=== PATIENT | female | born 1965 | race Caucasian/White ===

== ENCOUNTER → 2016-10-01 | Day surgery (SDC) | payer BC, OTHER ==
--- NOTE | 2016-10-03 10:36 | PATH ---
Cytology Non-Gynecological Report Patient Name: EVITA VASQUEZ [facility]. Rec. #: [id number] /Age/Gender: 1965 (Age: 51) / F Account: [id number] Location: RADIOLOGY Taken: 10/01/2016 Received: 10/01/2016 Reported: 10/03/2016 Physicians: Yuly Mendoza M.D. Specimen(s) Received RIGHT THYROID FNA Clinical History Right thyroid nodule 2.4 x 2.4 x 0.7 cm; r/o thyroiditis Final Diagnosis THYROID GLAND, RIGHT LOBE, US GUIDED FINE NEEDLE ASPIRATION BIOPSY: SATISFACTORY FOR EVALUATION. NO MALIGNANT CELLS IDENTIFIED. SCATTERED BLAND APPEARING FOLICULAR EPITHELIAL CELLS WITH VACUOLATED CYTOPLASM AND COLLOID ([place] CATEGORY II, BENIGN), SEE COMMENT. Comment: The biopsy shows scattered bland appearing follicular epithelial cells with foamy (vacuolated) cytoplasm and colloid. These findings are most suggestive of nodular hyperplasia, likely with a background inflammatory condition such as Grave's disease ([place] Category II, benign). Serological and clinical correlations are suggested. Electronically Signed Nick Coburn M.D. Gross Description Received are four air dried smears, four smears in 95% alcohol, and 20 cc of bloody fluid in formalin. Four diff-quik stained slides, four Pap stained slides and one cell block are made.
== END | disposition home or self-care (01) ==
LOC: JRADIR 08:49
PROVIDERS: ATTEND Otolaryngology Facial Plastic Surgery
PROC: 0G9H3ZX Drainage of Right Thyroid Gland Lobe, Percutaneous Approach, Diagnostic (ICD-10-PCS; principal; 2016-10-01)
PROC: BG44ZZZ Ultrasonography of Thyroid Gland (ICD-10-PCS; 2016-10-01)
DX: E04.1 Nontoxic single thyroid nodule (principal)
CPT/HCPCS: 10022; 76942; 88173; 88305-TC

== ENCOUNTER 2023-10-01 21:35 | Emergency (ER) | payer BC ==
[2023-10-01 21:44] VITALS: BP 154/79; PULSE 87; RESP 20; TEMP 97.5; BMI 19.3
[2023-10-01] MEDS ORDERED: ONDANSETRON 4 MG/2 ML VIAL IVPUSH ONE (22:15)
[2023-10-01] MEDS ORDERED: SODIUM CHLORIDE 0.9% 500 ML INFUS.BAG IV ONE (22:15)
[2023-10-01] MEDS ORDERED: FAMOTIDINE 20 MG/50 ML IVPB 20 MG/50 ML MG IVPB ONE ×2 (22:19→22:32)
[2023-10-01] MEDS ORDERED: ONDANSETRON 4 MG/2 ML VIAL ONE (22:32)
[2023-10-01 22:57] LABS: BASO % 0.6 % (0-2.0); EOS % 0.9 % (0-4.5); HEMATOCRIT 41.5 % (32.4-45.2); HEMOGLOBIN 13.8 GM/dL (10.7-15.3); LYMPH % 39.4 % (8-40); MCHC 33.2 g/dl (32.0-36.0); MEAN CELL VOLUME 96.3 fl (80-96); MEAN PLT VOLUME 8.7 fl (7.5-11.1); MONO % 6.3 % (3.8-10.2); NEUT % 52.8 % (42.8-82.8); PLATELET COUNT 220 10^3/uL (134-434); RBC 4.31 M/mm3 (3.60-5.2); WHITE BLOOD COUNT 4.1 K/mm3 (4.0-10.0)
[2023-10-01 23:09] LABS: POTASSIUM 3.6 mmol/L (3.5-5.1)
[2023-10-01 23:11] LABS: CALCIUM 8.7 mg/dL (8.5-10.1)
[2023-10-01 23:12] LABS: ALBUMIN 3.8 g/dl (3.4-5.0); BLOOD UREA NITROGEN 5.1 mg/dL (7-18)
[2023-10-01 23:15] LABS: CREATININE 0.9 mg/dL (0.55-1.3)
[2023-10-01 23:16] LABS: BILIRUBIN,TOTAL 0.3 mg/dL (0.2-1)
== END 2023-10-02 01:20 | disposition home or self-care (01) ==
LOC: JER 21:35
PROC: 3E033GC Introduction of Other Therapeutic Substance into Peripheral Vein, Percutaneous Approach (ICD-10-PCS; principal; 2023-10-01)
PROC: 3E033GC Introduction of Other Therapeutic Substance into Peripheral Vein, Percutaneous Approach (ICD-10-PCS; 2023-10-01)
DX: T40.721A Poisoning by synthetic cannabinoids, accidental (unintentional), initial encounter (principal); R11.2 Nausea with vomiting, unspecified; R10.13 Epigastric pain; Z20.822 Contact with and (suspected) exposure to COVID-19
CPT/HCPCS: 0241U-QW; 36415; 80053; 83690; 84484; 84703; 85025; 93005; 93010; 99284-25